=== PATIENT | male | born 1930 | race Caucasian/White ===

== ENCOUNTER 2016-07-16 17:42 | Emergency (ER) | payer MEDICARE, OTHER ==
[~2016-07-16] VITALS: Ht 167.6 cm; Wt 81.2 kg
[~2016-07-16 17:42] MED LIST: ALFU10TA PO; ASPI-482 PO; ASPI325T8 PO; ATOR40TA PO; BIMA2.5D EACHEYE; CARV3.12 PO; CLOP75TA57 PO; CYAN500T17 PO; ESOM40CA25 PO; ISOS30TA4 PO; ISOS60TA PO; LEVO50TA PO; MULT-208 PO; NIAC500T PO; NITR0.4T22 SL; OMEG300C PO; PANT40TA3 PO; RANO10002 PO; RANO500T2 PO; TAMS0.4C97 PO
--- NOTE | 2016-07-16 17:58 | EKG ---
[address] [address] Test Date: 2016-07-16 Test Time: 17:49:24 Pat Name: MARQUIS BANUELOS Department: Room: Gender: M Inspector Boiler: MAXIMILIANO : 1930 Requested By: DANIAL SILVA Order Number: [id number] Reading MD: Dario Walton Measurements Intervals [place] Rate: 67 P: 52 IA: 170 QRS: -18 QRSD: 100 T: 67 QT: 388 QTc: 413 Interpretive Statements SINUS RHYTHM LEFTWARD AXIS CANNOT RULE OUT INFERIOR INFARCT Electronically Signed On 07-25-2016 8:46:11 CDT by Dario Walton
--- NOTE | 2016-07-16 18:09 | PHYS DOC ---
Past History Past Medical History: High Cholesterol, Heart Disease, Hypertension, Hypothyroid Past Surgical History: Cholecystectomy, Other Alcohol Use: Occasionally Drug Use: None Adult General Chief Complaint Chief Complaint: CHEST PAIN-CARDIAC NATURE HPI HPI Patient is a pleasant 86 yo male with hx of CAD, CABG, HTN who presents with CP that has been intermittent for last 2-3 weeks. Patient admits 3 weeks or he was seen by his primary care doctor and crude oil treater he was on Coreg and he developed a tremor of his upper extremities bilaterally. Worried if this is associated with the Coreg the crude oil treater changed him to lisinopril. This has not changed his symptoms and about a week later they ate some back to Coreg intermittently for the last several weeks as well patient is been having chest pain with exertion while climbing ladders stairs and other exertional experience. The pain lasts 10-20 minutes and is relieved with rest. Patient has had symptoms like this in the past and he admits he has had a stress test nuclear nature with no obvious changes in the flow to his heart. Given his prior medical history is crude oil treater did refer him to the emergency department today for evaluation despite his symptoms ongoing for the last 2 weeks. At this time he is pain-free there is no radiation of his pain to his back neck or shoulder. He occasionally will have left shoulder pain with these symptoms but not at this time. He denies any nausea vomiting shortness of breath weakness or focal neurologic deficits problems with cough runny nose or URI symptoms. Patient does live with his son and has follow-up with his crude oil treater on Monday. At this point patient is symptom-free wanted to make sure his heart was not injured. Review of Systems Review of Systems Constitutional: Denies fever or chills [] Eyes: Denies change in visual acuity, redness, or eye pain [] HENT: Denies nasal congestion or sore throat [] Respiratory: Denies cough or shortness of breath [] Cardiovascular: No additional information not addressed in HPI [] GI: Denies abdominal pain, nausea, vomiting, bloody stools or diarrhea [] : Denies dysuria or hematuria [] Musculoskeletal: Denies back pain or joint pain [] Integument: Denies rash or skin lesions [] Neurologic: complaint of dizziness, generalized weakness, decrease exercise tolerance Endocrine: Denies polyuria or polydipsia [] Allergies Allergies Allergies Coded Allergies Type Severity Reaction Last Updated Verified No Known Drug Allergies 01/12/16 No Physical Exam Physical Exam Constitutional: Well developed, well nourished, no acute distress, non-toxic appearance. [] HENT: Normocephalic, atraumatic, bilateral external ears normal, dry MM, no oral exudates, nose normal. [] Eyes: PERRLA, EOMI, conjunctiva normal, no discharge. [] Neck: Normal range of motion, no tenderness, supple, no stridor. [] Cardiovascular:Heart rate regular rhythm, no murmur, noted well healed scar on chest wall Lungs & Thorax: Bilateral breath sounds clear to auscultation [] Abdomen: Bowel sounds normal, soft, no tenderness, no masses, no pulsatile masses. [] Skin: Warm, dry, no erythema, no rash. [] Back: No tenderness, no CVA tenderness. [] Extremities: No tenderness, no cyanosis, no clubbing, ROM intact, no edema. [] Neurologic: Alert and oriented X 3, normal motor function, normal sensory function, no focal deficits noted. , normal strength AE, [] Psychologic: Affect normal, judgement normal, mood normal.slow to respond but competent and appropriate Current Patient Data Vital Signs Vital Signs Date Time Temp Pulse Resp B/P (MAP) Pulse Ox O2 Delivery O2 Flow Rate FiO2 07/16/16 17:50 98.6 61 16 97 Room Air Vital Signs Date Time Temp Pulse Resp B/P (MAP) Pulse Ox O2 Delivery O2 Flow Rate FiO2 07/16/16 17:50 98.6 61 16 97 Room Air Lab Results Laboratory Tests Test 07/16/16 18:00 07/16/16 19:00 White Blood Count 4.2 x10^3/uL (4.0-11.0) Red Blood Count 3.83 x10^6/uL (4.30-5.70) L Hemoglobin 13.5 g/dL (13.0-17.5) Hematocrit 39.8 % (39.0-53.0) Mean Corpuscular Volume 104 fL (79-100) H Mean Corpuscular Hemoglobin 35 pg (25-35) Mean Corpuscular Hemoglobin Concent 34 g/dL (31-37) Red Cell Distribution Width 13.5 % (11.5-14.5) Platelet Count 134 x10^3/uL (140-400) L Neutrophils (%) (Auto) 60 % (31-73) Lymphocytes (%) (Auto) 27 % (24-48) Monocytes (%) (Auto) 11 % (0-9) H Eosinophils (%) (Auto) 2 % (0-3) Basophils (%) (Auto) 1 % (0-3) Neutrophils # (Auto) 2.5 x10^3uL (1.8-7.7) Lymphocytes # (Auto) 1.1 x10^3/uL (1.0-4.8) Monocytes # (Auto) 0.4 x10^3/uL (0.0-1.1) Eosinophils # (Auto) 0.1 x10^3/uL (0.0-0.7) Basophils # (Auto) 0.0 x10^3/uL (0.0-0.2) D-Dimer (Chrissy) 1.63 mg/L (0.00-0.50) H Sodium Level 136 mmol/L (136-145) Potassium Level 4.3 mmol/L (3.5-5.1) Chloride Level 101 mmol/L (98-107) Carbon Dioxide Level 28 mmol/L (21-32) Anion Gap 7 (6-14) Blood Urea Nitrogen 12 mg/dL (8-26) Creatinine 0.8 mg/dL (0.7-1.3) Estimated GFR (Cockcroft-Gault) 91.7 BUN/Creatinine Ratio 15 (6-20) Glucose Level 100 mg/dL (70-99) H Calcium Level 8.8 mg/dL (8.5-10.1) Magnesium Level 2.0 mg/dL (1.8-2.4) Total Bilirubin 0.7 mg/dL (0.2-1.0) Aspartate Amino Transferase (AST) 26 U/L (15-37) Alanine Aminotransferase (ALT) 36 U/L (16-63) Alkaline Phosphatase 58 U/L (46-116) Creatine Kinase 179 U/L (39-308) Creatine Kinase MB (Mass) 3.5 ng/mL (0.0-3.6) Creatine Kinase MB Relative Index 2.0 % (0-4) Troponin I Quantitative < 0.017 ng/mL (0-0.055) YR-Qpk-M-Type Natriuretic Peptide 270 pg/mL (0-449) Total Protein 7.0 g/dL (6.4-8.2) Albumin 4.3 g/dL (3.4-5.0) Albumin/Globulin Ratio 1.6 (1.0-1.7) Lipase 111 U/L (73-393) Urine Collection Type Unknown Urine Color Yellow Urine Clarity Clear Urine pH 7.0 Urine Specific [place]idd[place] 1.015 Urine Protein Neg (NEG-TRACE) Urine Glucose (UA) Neg mg/dL (NEG) Urine Ketones (Stick) Neg mg/dL (NEG) Urine Blood Neg (NEG) Urine Nitrite Neg (NEG) Urine Bilirubin Neg (NEG) Urine Urobilinogen Dipstick 0.2 mg/dL (0.2 mg/dL) Urine Leukocyte Esterase Neg (NEG) Urine RBC Occ /HPF (0-2) Urine WBC Occ /HPF (0-4) Urine Squamous Epithelial Cells Few /LPF Urine Bacteria 0 /HPF (0-FEW) EKG EKG Time 5:49 pm date 07/16/16 NSR, NS t wave flattening lateral leads, no ST changes consistent with ischemia[] Read by Dr. Sharma at 18:00 Radiology/Procedures Radiology/Procedures [] Chest x-ray dated 07/16/2016 at a 824 demonstrated no significant consolidation normal cardiac shadow noted Occasionally aortic arch without obvious signs of fluid blunting the aortic knob fluid within the fissures or pneumothorax. No rib fractures pneumonia or substance air noted. Course & Med Decision Making Course & Med Decision Making Pertinent Labs and Imaging studies reviewed. (See chart for details) [] IMAGING REPORT Signed PATIENT: MARQUIS BANUELOS ACCOUNT: [id number] : 1930 LOCATION: ER AGE: 86 SEX: M EXAM STATUS: REG ER ORD. PHYSICIAN: JOHN SHARMA MD REASON: CHEST PAIN WITH SHORTNESS OF BREATH PROCEDURE: CT ANGIOGRAPHY CHEST PROCEDURE CTA of the chest with contrast HISTORY Chest pain. Shortness of breath. Elevated D-dimer. History of smoker. Triple bypass. TECHNIQUE Intravenous contrast administered. MIP reconstructions obtained. Exposure: One or more of the following individualized dose reduction techniques were utilized for this exam: 1. Automated exposure control. 2. Adjustment of the mA and/or kV according to patient size. 3. Use of iterative reconstruction technique. COMPARISON January 12, 2016. FINDINGS No evidence of pulmonary embolism. Ascending aorta is dilated and measures 4.3 centimeters transverse, stable since the prior study. Aortic atherosclerotic calcifications. No definite dissection but aortic opacification is limited due to the timing of the bolus. Coronary calcifications are noted. No pericardial effusion. No evidence of pleural effusion. Mild wall thickening of the proximal esophagus, unchanged. No evidence of focal airspace consolidation. The trachea and central airways are patent. Thoracic spondylosis. No obvious acute abnormality on limited slices through the upper abdomen. There is a small hiatal hernia. IMPRESSION 1. No evidence of pulmonary embolism. 2. Stable dilatation of the ascending thoracic aorta. Electronically signed by: Abdi Steven MD (July 16, 2016 20:25:05) DICTATED AND SIGNED BY: ABDI STEVEN MD DATE: 07/16/162023 CC: JOHN SHARMA MD; DANIELA CULP MD ~ H and is a pleasant 86-year-old male with a history described above angina. He' s had no change in characteristics of his symptoms he is just noted tremors in his upper extremities that he thought was related to his Coreg usage. His crude oil treater tried to change that to lisinopril but there is no improvement of symptoms. Patient is symptom-free with notice of cardiac damage negative troponin negative EKG and negative chest x-ray negative CT angios of the chest for PE pneumonia pleural effusion pericardial effusion pneumonitis mediastinitis pneumothorax or tension cardiac this point patient will follow up with his crude oil treater for continued evaluation of his medications and possibly a nuclear stress test to evaluate signs of angina Impression: Chest pain likely stable angina Disposition: Primary cardiology evaluation in 48 hours return for any increasing pain shortness of breath or new symptoms continue aspirin and her oral therapy as prescribed. Precautions given at bedside to family and patient. Dragon Disclaimer Dragon Disclaimer This chart was dictated in whole or in part using Voice Recognition software in a busy, high-work load, and often noisy Emergency Department environment. It may contain unintended and wholly unrecognized errors or omissions. Departure Departure: Impression: Primary Impression: Chest pain Disposition: HOME, SELF-CARE Condition: IMPROVED Referrals: DANIELA CULP MD (PCP) Patient Instructions: Angina, Chest Pain (Nonspecific) Additional Instructions: Is return for any new or increasing symptoms or feel any questions or concerns. I would advise that you follow up with her crude oil treater as scheduled on Monday or return here for any new or changing systems or when necessary concerns about your care. I would also advise that you maintained your daily regimen of appropriate medications JOHN SHARMA MD July 16, 2016 18:09
[2016-07-16 18:14] LABS: BASO % 1 % (0-3); EOS # 0.1 x10^3/uL (0.0-0.7); EOS % 2 % (0-3); HEMATOCRIT 39.8 % (39.0-53.0); HEMOGLOBIN 13.5 g/dL (13.0-17.5); LYMPH # 1.1 x10^3/uL (1.0-4.8); LYMPH % 27 % (24-48); MEAN CORPUSCULAR HEMOGLOBIN 35 pg (25-35); MEAN CORPUSCULAR HGB CONC 34 g/dL (31-37); MEAN CORPUSCULAR VOLUME 104 fL (79-100); MONO # 0.4 x10^3/uL (0.0-1.1); MONO % 11 % (0-9); NEUT # 2.5 x10^3uL (1.8-7.7); NEUT % 60 % (31-73); PLATELET COUNT 134 x10^3/uL (140-400); RED BLOOD COUNT 3.83 x10^6/uL (4.30-5.70); RED CELL DISTRIBUTION WIDTH 13.5 % (11.5-14.5); WHITE BLOOD COUNT 4.2 x10^3/uL (4.0-11.0)
[2016-07-16] MEDS ORDERED: IV NORMAL SALINE 1,000ML 1,000 ML IV SCH (18:15)
[2016-07-16] MEDS ORDERED: 0.9 % SODIUM CHLORIDE 10 ML DISP.SYRIN. IV PRN (18:15)
[2016-07-16] MEDS ORDERED: ASPIRIN 325 MG TABLET PO ONE (18:15)
[2016-07-16 18:33] LABS: ALBUMIN 4.3 g/dL (3.4-5.0); ALBUMIN/GLOBULIN RATIO 1.6 (1.0-1.7); CALCIUM 8.8 mg/dL (8.5-10.1); CREATININE 0.8 mg/dL (0.7-1.3); GFR 91.7; POTASSIUM 4.3 mmol/L (3.5-5.1); TOTAL BILIRUBIN 0.7 mg/dL (0.2-1.0)
[2016-07-16] MEDS ORDERED: IOHEXOL 300 MG/ML 75 ML VIAL. IV ONE (19:30)
[2016-07-16] MEDS ORDERED: CONTRAST GIVEN MC PRN (19:30)
[2016-07-16 19:36] LABS: BACTERIA,URINE 0 /HPF (0-FEW); BILIRUBIN,URINE NEG (NEG); CLARITY,URINE CLEAR; COLOR,URINE YELLOW; GLUCOSE,URINE NEG (NEG); NITRITE,URINE NEG (NEG); RBC,URINE OCC /HPF (0-2); SQUAMOUS EPITHELIAL CELL,UR FEW /LPF; UROBILINOGEN,URINE 0.2 mg/dL (0.2 mg/dL); WBC,URINE OCC /HPF (0-4)
--- NOTE | 2016-07-16 20:25 | RAD ---
PROCEDURE CTA of the chest with contrast HISTORY Chest pain. Shortness of breath. Elevated D-dimer. History of smoker. Triple bypass. TECHNIQUE Intravenous contrast administered. MIP reconstructions obtained. Exposure: One or more of the following individualized dose reduction techniques were utilized for this exam: 1. Automated exposure control. 2. Adjustment of the mA and/or kV according to patient size. 3. Use of iterative reconstruction technique. COMPARISON January 12, 2016. FINDINGS No evidence of pulmonary embolism. Ascending aorta is dilated and measures 4.3 centimeters transverse, stable since the prior study. Aortic atherosclerotic calcifications. No definite dissection but aortic opacification is limited due to the timing of the bolus. Coronary calcifications are noted. No pericardial effusion. No evidence of pleural effusion. Mild wall thickening of the proximal esophagus, unchanged. No evidence of focal airspace consolidation. The trachea and central airways are patent. Thoracic spondylosis. No obvious acute abnormality on limited slices through the upper abdomen. There is a small hiatal hernia. IMPRESSION 1. No evidence of pulmonary embolism. 2. Stable dilatation of the ascending thoracic aorta. Electronically signed by: Abdi Steven MD (July 16, 2016 20:25:05)
[2016-07-16 21:13] VITALS: BP 157/77
--- NOTE | 2016-07-17 09:03 | RAD ---
Indication chest pain. A single view of the chest was obtained and is compared to an examination 01/12/2016. Postoperative changes are noted. The lungs are clear of acute infiltrates. The pulmonary vasculature is normal. Eventration of the right hemidiaphragm is noted similar to the previous exam. IMPRESSION: No acute finding apparent in the chest
== END 2016-07-16 21:24 | disposition home or self-care (01) ==
LOC: ER 17:42
DX: R07.9 Chest pain, unspecified (principal); E78.00 Pure hypercholesterolemia, unspecified; E03.9 Hypothyroidism, unspecified; I11.9 Hypertensive heart disease without heart failure; I25.810 Atherosclerosis of coronary artery bypass graft(s) without angina pectoris; Z87.891 Personal history of nicotine dependence
CPT/HCPCS: 36415; 71010; 71275; 80053; 81001; 82553; 83690; 83735; 83880; 84443; 84484; 85027; 85379; 93005; 96360; 96361; 99285; Q9967; J7030

== ENCOUNTER → 2016-10-03 | Outpatient (CLI) | payer MEDICARE, OTHER ==
--- NOTE | 2016-10-03 11:26 | RAD ---
CT of the head without contrast, 10/03/2016: History: Headache, visual changes There is mild cerebral atrophy. There are faint lucencies in the deep white matter bilaterally compatible with chronic ischemic change. The ventricles are within normal limits in size. There is no shift of the midline structures. There is no evidence of acute intracranial hemorrhage or mass effect. There is considerable calcific plaquing of the distal vertebral and carotid arteries. There is a small amount of fluid or inflammatory debris in the posterior aspect of the left sphenoid sinus. IMPRESSION: 1. Chronic findings as described above. 2. No acute intracranial abnormality is detected. PQRS Compliance Statement: One or more of the following individualized dose reduction techniques were utilized for this examination: 1. Automated exposure control 2. Adjustment of the mA and/or kV according to patient size 3. Use of iterative reconstruction technique
== END | disposition home or self-care (01) ==
LOC: CT 10:02
PROVIDERS: ATTEND Physician Assistant
DX: G31.9 Degenerative disease of nervous system, unspecified (principal); I65.23 Occlusion and stenosis of bilateral carotid arteries; H53.8 Other visual disturbances; R51 Headache
CPT/HCPCS: 70450

== ENCOUNTER → 2016-10-13 | Outpatient (CLI) | payer MEDICARE, OTHER ==
--- NOTE | 2016-10-13 13:28 | RAD ---
Cervical spine, 5 views, 10/13/2016: History: Headache, neck pain There are extensive hypertrophic degenerative changes involving multiple facet joints bilaterally. There is mild anterolisthesis at C3-4 and C4-5 and mild retrolisthesis at C5-6, apparently due to facet joint arthropathy. Disc space narrowing is most severe at C5-6 and C6-7. There are prominent spurs throughout the mid and lower cervical spine. The combination of findings is causing foraminal encroachment at multiple levels, most severe bilaterally at C3-4 and C4-5 and to a lesser degree at C5-6. No fracture is identified. No prevertebral soft tissue swelling is evident. There is considerable calcific plaquing at the left carotid bifurcation. IMPRESSION: 1. Severe multilevel degenerative change. 2. Mild anterolisthesis at C3-4 and C4-5 and retrolisthesis C5-6 due to severe facet joint arthropathy.
== END | disposition home or self-care (01) ==
LOC: DXRAD 12:13
PROVIDERS: ATTEND Psychiatry & Neurology Neurology
DX: M47.892 Other spondylosis, cervical region (principal); R51 Headache; M12.88 Other specific arthropathies, not elsewhere classified, other specified site
CPT/HCPCS: 72050

== ENCOUNTER → 2016-12-09 | Outpatient (CLI) | payer MEDICARE, OTHER ==
[~2016-12-09] MED LIST changes: +0.9 % SODIUM CHLORIDE 10 ML VIAL ONE; +DEXAMETHASONE SOD PHOS 4 MG/ML VIAL ONE; +IOHEXOL 300 MG/ML 50 ML VIAL. ONE; +LIDOCAINE 1% PF 30 ML VIAL. ONE
== END | disposition home or self-care (01) ==
LOC: SURG 12:39
PROVIDERS: ATTEND Anesthesiology Pain Medicine
DX: M54.12 Radiculopathy, cervical region (principal); I10 Essential (primary) hypertension; I25.10 Atherosclerotic heart disease of native coronary artery without angina pectoris; M19.90 Unspecified osteoarthritis, unspecified site; Z87.891 Personal history of nicotine dependence; Z85.828 Personal history of other malignant neoplasm of skin; E07.9 Disorder of thyroid, unspecified; Z95.1 Presence of aortocoronary bypass graft; Z98.890 Other specified postprocedural states
CPT/HCPCS: 62321; J1100; J2001; Q9967